=== PATIENT | male | born 1990 | race Caucasian/White ===

== ENCOUNTER 2022-08-16 04:25 | Emergency (ER) | payer OTHER, SELFPAY ==
[2022-08-16 04:28] VITALS: BP 137/70; PULSE 86; RESP 17; TEMP 37.1; O2SAT 99; BMI 27.1
--- NOTE | 2022-08-16 04:30 | ED.GENADULT ---
HPI - General Adult General Chief complaint: Wound/Laceration Stated complaint: laceration right ear Time Seen by Provider: 08/16/22 04:29 History of Present Illness HPI narrative: 31-year-old male nonsmoker with noncontributory medical history presents with a work-related injury to his right external ear. 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 He had a moderate amount of bleeding but denies any loss of consciousness, nausea or vomiting. He denies any numbness, tingling or weakness. He denies any blurred vision or trouble with speech. He has no difficulty hearing out of his right ear. He states that he will require an updated tetanus. Related Data Previous Rx's Medication Instructions Recorded cephalexin 500 mg capsule 500 mg PO Q6H 7 days #28 caps 08/16/22 Allergies Allergy/AdvReac Type Severity Reaction Status Date / Time No Known Drug Allergies Allergy Verified 08/16/22 04:48 Review of Systems Review of Systems Narrative: GENERAL: Denies chills, fatigue, malaise, fever, sweats. HEENT: See HPI RESPIRATORY: Denies dyspnea, cough, wheezing, hemoptysis, sputum. CARDIOVASCULAR: Denies chest pain, palpitations, orthopnea, edema, GASTROINTESTINAL: Denies nausea, vomiting, abdominal pain, diarrhea, constipation, melena. : Denies dysuria, frequency, incontinence, hematuria, urinary retention. MUSCULOSKELETAL: denies weakness, joint pain, or bony pain SKIN: Denies rash, skin lesions, or other NEUROLOGIC: Denies weakness, headache, numbness, change in speech, confusion, seizures, incoordination. PSYCHIATRIC: No concerning psychosocial issues. 12 point review of systems is negative except for those stated above Patient History Social History Smoking Status: Never smoker Exam Narrative Exam Narrative: GENERAL: [31] year old patient appears stated age. Well-developed patient, in mild distress. HEAD: Atraumatic. Normocephalic. EYES: Pupils equal round and reactive. Extraocular motions intact. No scleral icterus. No injection or drainage. ENT: Right external ear with 3-1/2 cm obvious complex laceration with cartilaginous involvement of the antihelix and helix, external auditory canal is patent, tympanic membrane is unremarkable Nose without bleeding, purulent drainage. Throat without erythema, tonsillar hypertrophy or exudate. Airway patent. NECK: Trachea midline. Non tender CARDIOVASCULAR: Regular rate and rhythm without murmurs, gallops, or rubs. RESPIRATORY: Clear to auscultation. Breath sounds equal bilaterally. No wheezes, rales, or rhonchi. GASTROINTESTINAL: Abdomen soft, non-tender, nondistended. EXTREMITIES: No edema or joint tenderness. BACK: Nontender without deformity or crepitance. No flank tenderness. NEURO: AOx3. SKIN: No rash or erythema of visible areas Initial Vital Signs Initial Vital Signs: Vital Signs Temperature 98.7 F 08/16/22 04:28 Pulse Rate 86 08/16/22 04:28 Respiratory Rate 17 08/16/22 04:28 Blood Pressure 137/70 08/16/22 04:28 Pulse Oximetry 99 08/16/22 04:28 Oxygen Delivery Method 08/16/22 04:28 Procedures Laceration Repair Laceration 1: Site: face (ear) Side (If applicable): right Size (cm): 4 Description: stellate Depth: simple, single layer (with cartilage involvement) Amount of anesthesia used (mL): 6 Pre-repair: wound explored and cleansed with chlorhexadine Skin layer closed with: nylon Skin layer suture size: 6-0 Number of sutures: 12 Technique: simple, interrupted Subcutaneous layer closed with: vicryl Subcutaneous layer suture size: 5-0 Number of sutures: 5 Technique: simple, interrupted Course Orders Ordered: Discontinued Medications Cefazolin Sodium (Cephalexin 250 Mg Prepack) 1 bottle [facility] [place] Stop: 08/16/22 06:07 Last Admin: 08/16/22 06:13 Dose: 1 bottle Documented By: JACLYN Diphtheria/Tetanus/Acell Pertussis (Tet,Diph,Pertuss(Acell),Vac/Pf 0.5 Ml Syringe) 0.5 ml IM .ONCE ONE Stop: 08/16/22 04:43 Last Admin: 08/16/22 05:34 Dose: 0.5 ml Documented By: CHLOEW Consultations Consultation #1: Discussed with Dr. Gotti, on-call for ENT, he is happy with the plan including repair, use of antibiotics, dressing and follow-up, he recommends patient be seen in their clinic early next week Vital Signs Vital signs: Vital Signs - 8 hr 08/16/22 04:28 Temperature 98.7 F Pulse Rate 86 Respiratory Rate 17 Blood Pressure 137/70 Pulse Oximetry 99 Oxygen Delivery Method Room Air Discharge Plan Departure Patient Disposition: Home Clinical Impression: Laceration Instructions: DI for Laceration Repair Activity Restrictions/Additional Instructions: *You have been diagnosed with [complex right ear laceration] *What to do: *Please continue to take your regular medications as directed. [x] New medication prescriptions sent to your pharmacy: [[facility] ] [ ] New medication written as a paper prescription [ ] No new medications given *Please follow up with Dr. Gotti of [facility], please contact his office later today and let them know that you were seen in the emergency department and we would like you seen in follow-up. I will electronically transmitted a copy of today's note. As we discussed I did speak with him this morning * Please keep the wound clean and dry to the best of your ability. Please monitor for signs of infection such as redness to the skin or increasing pain. The sutures will be removed at the ENT office. Prescriptions: New cephalexin 500 mg capsule 500 mg PO Q6H 7 Days Qty: 28 0RF Referrals: Danny Gotti MD [Physician] - Visit Report Forms: Patient Portal/API
[2022-08-16] MEDS: TET,DIPH,PERTUSS(ACELL),VAC/PF 0.5 ML SYRINGE IM (05:34)
[2022-08-16] MEDS: LIDOCAINE 2% INJ SDV 5 ML (05:35)
[2022-08-16] MEDS: cephALEXin 250 MG PREPACK 1 BOTTLE MISC (06:13)
--- NOTE | 2022-08-17 11:29 | PC.NURSE ---
pt called wanting to know where to go for ENT.
== END 2022-08-16 06:38 | disposition home or self-care (01) ==
PROVIDERS: Emergency Provider Emergency Medicine
DX: S01.311A Laceration without foreign body of right ear, initial encounter (principal); W31.89XA Contact with other specified machinery, initial encounter; Y99.0 Civilian activity done for income or pay
CPT/HCPCS: 12013; 90471; 99283; 90715